=== PATIENT | female | born 2000 | race Caucasian/White ===

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

== ENCOUNTER 2022-03-22 16:35 | Outpatient (REF) | payer MEDICAID, SELFPAY ==
[2022-03-24 12:01] LABS: COVID-19 RT-PCR UVMMC Result Negative (Negative)
== END 2022-03-22 16:36 | disposition home or self-care (01) ==
LOC: LBN 16:35
PROVIDERS: PCP Pediatrics; Referring Provider Student in an Organized Health Care Education/Training Program; Visit Provider Student in an Organized Health Care Education/Training Program
DX: Z20.822 Contact with and (suspected) exposure to COVID-19 (principal)
CPT/HCPCS: U0003

== ENCOUNTER 2022-08-20 18:06 | Emergency (ER) | payer MEDICAID, SELFPAY ==
[2022-08-20 18:12] VITALS: BP 103/45; PULSE 61; RESP 16; TEMP 37.1; O2SAT 99
--- NOTE | 2022-08-20 18:49 | ED.GENADUL_ITS ---
Discharge Plan Disposition Patient Disposition: Home Condition: Stable Discharge Details Clinical Impression: Cut of head Primary Care Provider: Unknown,Unknown ED Provider: Kimberly Mohan Home Meds and New Rx's Prescriptions: Continued clindamycin-benzoyl peroxide [Benzaclin] 1-5 % gel 1 applic TP DAILY Qty: 35 2RF multivitamin Tablet 1 tab PO DAILY fluoxetine 20 mg capsule 20 mg PO DAILY Qty: 60 1RF Rx Instructions: take one capsule once a day fluoxetine [Prozac] 10 mg capsule 10 mg PO DAILY Qty: 60 1RF Discharge Instructions Instructions: Head Injury (ED), Head Laceration (ED) Additional Instructions: you have been provided a medical screening exam. You do not meet criteria for head CT scan, outpatient observation is appropriate for your injury. your wound does need closure, which has been offered here and you have chosen not to have it closed here. You can present to any facility of your choice for closure. For best results it should be closed within 6-8 hours but as soon as possible is best. Referrals: Unknown,Unknown [Primary Care Provider] - Medical Decision Making This is a 21-year-old who had a mechanical fall there was no loss of consciousness she has no C-spine tenderness she has abrasions to her bilateral knees and an irregular full-thickness laceration to her forehead. She is legally blind but does see light and reports no visual changes since she has had no nausea no vomiting. She has not been repetitive no concussive symptoms. She does not meet criteria for head CT but her extensive laceration does need repair. This was offered and patient and family she was with decided not to have the repair done here they preferred to do it someplace that had plastics . She was provided acetaminophen 650 mg orally and discharged to seek care elsewhere at her request. HPI General Mode of arrival: ambulatory . Date/Time Provider Initiated Documentation: 08/20/22 18:28 . Limitations to Documentation: no limitations . Information obtained by: patient . HPI Narrative: This is a 21-year-old legally blind female who had a mechanical fall while walking her dog. She did strike her head on a rock. There was no loss of consciousness no cervical spine neck pain she has no nausea or vomiting. Related Data Home Medications Medication Instructions Recorded Confirmed clindamycin 1 %-benzoyl peroxide 5 1 applic topical DAILY #35 grams 04/08/1903/14/ % topical gel (Benzaclin) multivitamin 1 tab PO DAILY 05/06/19 03/14/22 fluoxetine 10 mg capsule (Prozac) 10 mg PO DAILY #60 caps 04/08/20 01/13/21 fluoxetine 20 mg capsule 20 mg PO DAILY #60 caps 04/08/20 01/13/21 Previous Rx's Medication Instructions Recorded clindamycin 1 %-benzoyl peroxide 5 1 applic topical DAILY #35 grams 04/08/19 % topical gel (Benzaclin) fluoxetine 10 mg capsule (Prozac) 10 mg PO DAILY #60 caps 04/08/20 fluoxetine 20 mg capsule 20 mg PO DAILY #60 caps 04/08/20 Allergies Allergy/AdvReac Type Severity Reaction Status Date / Time No Known Allergies Allergy Verified 03/22/22 16:37 General Stated Complaint: Laceration BETSEY: 4 Review of Systems All systems reviewed & are unremarkable except as noted in HPI and below PFSH All Active Problems (Updated 08/20/22 @ 18:54 by Kimberly Mohan NP) Cut of head (Acute) Underweight (Acute) Depression (Chronic) Conductive hearing loss, external ear (Acute) Bilateral impacted cerumen (Acute 04/20/17) Chronic cholestatic jaundice syndrome (Acute 04/19/13) 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) BMI (body mass index), pediatric, 5% to less than 85% for age (Chronic 11/17/16) 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 Legally blind (Chronic 06/27/14) Nickel allergy (Chronic) Seborrheic dermatitis of scalp (Chronic) 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) Medical History Abnormal auditory perception of both ears (04/20/17) Acute swimmer's ear of right side (09/07/17) Alagille syndrome Alagille syndrome (06/27/14) BMI (body mass index), pediatric, 5% to less than 85% for age (11/17/16) 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 (04/03/15) secondary to alagille with hypertension- sp stenting 2014 Depression Legally blind (06/27/14) Mood problem (04/18/17) Nickel allergy Seborrheic dermatitis of scalp 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 (04/20/17) Underweight Wheezing Surgical History Myringotomy w/ PE (pressure equalizing) tubes Patent Ductus Arteriosus closure renal stents Repair of inguinal hernia Family History Brother Puma syndrome liver transplant '09 Other Healthy adult on routine physical examination Social History Smoking/Tobacco Use Status: Never Second Hand Exposure: No Smoking risk assessment performed?: Yes Drug use: Never Pets and animals: Yes Pets and animals: dog(s) Exam Const General: cooperative and anxious Nutritional Appearance: thin Orientation: alert, awake and oriented x3 HENMT Head: normal to inspection, normocephalic, signs of trauma and laceration (Jagged irregular cross shaped laceration full-thickness ) left frontal irregular, Y-shaped and involving subcutaneous tissue; not actively bleeding Mouth: oral mucosae normal Neck Neck: normal visual inspection, full ROM and nontender Resp Effort & Inspection: normal respiratory effort Cardio Rate: regular rate Rhythm: regular rhythm GI Inspection: normal to inspection Palpation: soft and nontender Skin Lesions: lesion noted Rashes: no rashes Neuro General: patient alert, patient awake and patient oriented x3 Extrem General: normal to inspection and full ROM Course Vital Signs Vital signs: Vital Signs Temperature 37.1 C 08/20/22 18:12 Pulse 61 08/20/22 18:12 Respiratory Rate 16 08/20/22 18:12 Blood Pressure 103/45 L 08/20/22 18:12 Pulse Oximetry 99 08/20/22 18:12 Temperature 37.1 C 08/20/22 18:12 Temperature Source Oral 08/20/22 18:12 Pulse 61 08/20/22 18:12 Respiratory Rate 16 08/20/22 18:12 Blood Pressure 103/45 L 08/20/22 18:12 Blood Pressure Position Sitting 08/20/22 18:12 Pulse Oximetry 99 08/20/22 18:12 Oxygen Delivery Method Room Air 08/20/22 18:12 Oxygen Flow Rate 0 08/20/22 18:12 Pain Level 2 08/20/22 18:12
== END 2022-08-20 19:00 | disposition home or self-care (01) ==
PROVIDERS: Emergency Provider Nurse Practitioner Acute Care
DX: S01.91XA Laceration without foreign body of unspecified part of head, initial encounter (principal); H54.8 Legal blindness, as defined in USA; W01.110A Fall on same level from slipping, tripping and stumbling with subsequent striking against sharp glass, initial encounter; Y93.K1 Activity, walking an animal; Z53.29 Procedure and treatment not carried out because of patient's decision for other reasons
CPT/HCPCS: 99283